=== PATIENT | female | born 1950 | race Caucasian/White ===

== ENCOUNTER → 2023-11-01 09:34 | Outpatient (REF) | payer MEDICARE, OTHER, SELFPAY | LOC: HWRAD 09:34 | PROVIDERS: ATTENDING PHYSICIAN Internal Medicine Rheumatology; FAMILY PHYSICIAN Family Medicine | DX: M81.0 Age-related osteoporosis without current pathological fracture (principal) | CPT/HCPCS: 77080 ==

== ENCOUNTER → 2024-03-04 14:41 | Outpatient (REF) | payer MEDICARE, OTHER, SELFPAY | LOC: WDC 14:41 | PROVIDERS: ATTENDING PHYSICIAN Family Medicine | DX: Z12.31 Encounter for screening mammogram for malignant neoplasm of breast (principal) | CPT/HCPCS: 77063; 77067 ==

== ENCOUNTER → 2025-03-26 17:24 | Outpatient (REF) | payer MEDICARE, OTHER, SELFPAY | LOC: WDC 17:24 | PROVIDERS: ATTENDING PHYSICIAN Family Medicine | DX: Z12.31 Encounter for screening mammogram for malignant neoplasm of breast (principal) | CPT/HCPCS: 77063; 77067 ==

== ENCOUNTER 2025-07-14 15:25 | Emergency (ER) | payer MEDICARE, OTHER, SELFPAY ==
[2025-07-14 15:33] VITALS: BP 144/78
[2025-07-14 15:58] LABS: Hematocrit 40.9 % (37.0-47.0); Hemoglobin 13.2 g/dL (12.0-16.0); Mean Corp Hgb Conc. 32.3 g/dL (33.0-37.0); Mean Corpuscular Volume 84.2 fL (81.0-99.0); Nucleated Red Blood Cells % 0 %; Platelet Count 318 10^3/uL (130-400); Red Cell Dist. Width 14.3 % (11.5-14.5)
[2025-07-14 16:15] LABS: ALT (SGPT) 18 U/L (0-35); AST (SGOT) 24 U/L (14-36); Albumin 4.3 g/dl (3.5-5.0); Alkaline Phosphatase 99 U/L (38-126); Blood Urea Nitrogen 10 mg/dl (7-17); Calcium 9.9 mg/dl (8.4-10.2); Carbon Dioxide 28 mmol/L (22-30); Chloride 106 mmol/L (98-107); Glucose 101 mg/dl (70-99); Lipase 116 U/L (23-300); Potassium 3.6 mmol/L (3.5-5.1); Sodium 140 mmol/L (135-145); Total Protein 7.1 g/dl (6.3-8.2); eGFR > 60.00
--- NOTE | 2025-07-14 18:28 | ED.GENMED ---
History of Present Illness
<Slava Gomez PA-C - Last Filed: 07/14/25 19:16>
General
Chief Complaint: Flank Pain
Time Seen by Provider: 07/14/25 18:16
History of Present Illness
History of Present Illness:
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
that began yesterday. Pain is fairly constant and is equal on both sides. No recent falls or injuries. She also reports over the past 3 weeks she has been having intermittent gross hematuria. She followed with her doctor and there was thought
for a possible urinary tract infection but the patient was not started on antibiotics. She had no back or flank pain at that time. No other acute symptoms noted.
Past History
<Slava Gomez PA-C - Last Filed: 07/14/25 19:16>
Past History
ED Past Medical History: Asthma, CVA, HTN, Hypercholesterolemia and Other (Crohn's disease)
ED Past Surgical History: , Orthopedic (R hip replaced) and Other (Hernia repair)
Social History
Tobacco: Non-smoker
Personal:
Living: with family
Employment: Retired
Review of Systems
<Slava Gomez PA-C - Last Filed: 07/14/25 19:16>
Review of Systems
All Other Systems: ROS reviewed and negative except as documented in HPI and ROS
Phy Exam
<ELZBIETA Ortiz Last Filed: 07/14/25 19:16>
Physical Exam
Physical Exam:
GENERAL: Alert , in no apparent distress
NECK: Supple
ENT: o/p clr, mmm.
CARDIAC: Regular rate and rhythm .
LUNGS: Clear breath sounds bilaterally, no acute respiratory distress, no wheezes/rales/rhonchi
ABDOMEN: Soft, without focal tenderness, no r/g, no cvat
NEUROLOGICAL: Alert and oriented, no focal neuro deficits
SKIN: Warm and dry, skin intact.
MUSCULOSKELETAL: No edema, well perfused. No tenderness. No rashes. No deformities.
PSYCH: Normal and appropriate interaction.
Course
<Slava Gomez PA-C - Last Filed: 07/14/25 19:16>
Orders/Labs/Results
Orders:
Orders
07/14/25 15:42
Complete Blood Count/With Diff Urgent
Comprehensive Metabolic Panel Urgent
Lipase Urgent
07/14/25 18:27
CT Abd/pel Without Iv Or Oral Urgent
Comment:
Reason For Exam: back pain, hematuria
07/14/25 18:36
Urinalysis Reflex To Culture Urgent
Date Specimen was Collected: 07/14/25
Time Specimen was Collected: 15:38
Urine Microscopic Reflex Cult Urgent
Urine Culture Urgent
RILEY Source: U
Specimen Description:
Date Specimen was Collected: 07/14/25
Time Specimen was Collected: 15:38
Abnormal Lab Results
07/14/25 07/14/25
15:42 18:36
WBC 11.3 H 10^3/uL
(4.8-10.8)
MCHC 32.3 L g/dL
(33.0-37.0)
MPV 10.6 H fL
(7.4-10.4)
Abs Immat Gran (auto) 0.1 H 10^3/uL
(0-0.05)
Absolute Neuts (auto) 8.1 H 10^3/uL
(1.4-6.5)
Absolute Monos (auto) 0.7 H 10^3/uL
(0.1-0.6)
Lymphocytes % 19.3 L %
(20.5-51.1)
Glucose 101 H mg/dl
(70-99)
Ur Occult Blood Reflex 1+ A
(Negative)
Leukocyte Esterase Rfl 1+ A
(Negative)
Urine RBC 3-6 A /HPF
(0-2)
Urine Bacteria (Reflex) Many A
(Negative)
Urine Albumin (Reflex) 2+ A
(Neg - Trace)
07/14/25 15:42
07/14/25 15:42
Vital Signs
Initial and Last Documented VS:
Initial Vital Signs
Temp Pulse Resp BP Pulse Ox
97.9 F 98 20 144/78 96
07/14/25 15:33 07/14/25 15:33 07/14/25 15:33 07/14/25 15:33 07/14/25 15:33
Last Documented Vital Signs
Temp Pulse Resp BP Pulse Ox
97.9 F 98 20 144/78 96
07/14/25 15:33 07/14/25 15:33 07/14/25 15:33 07/14/25 15:33 07/14/25 18:30
Nanylt;Dexter Kelsey PA-C - Last Filed: 07/14/25 20:36>
Orders/Labs/Results
Orders:
Orders
07/14/25 15:42
Complete Blood Count/With Diff Urgent
Comprehensive Metabolic Panel Urgent
Lipase Urgent
07/14/25 18:27
CT Abd/pel Without Iv Or Oral Urgent
Comment:
Reason For Exam: back pain, hematuria
07/14/25 18:36
Urinalysis Reflex To Culture Urgent
Date Specimen was Collected: 07/14/25
Time Specimen was Collected: 15:38
Urine Microscopic Reflex Cult Urgent
Urine Culture Urgent
RILEY Source: U
Specimen Description:
Date Specimen was Collected: 07/14/25
Time Specimen was Collected: 15:38
Abnormal Lab Results
07/14/25 07/14/25
15:42 18:36
WBC 11.3 H 10^3/uL
(4.8-10.8)
MCHC 32.3 L g/dL
(33.0-37.0)
MPV 10.6 H fL
(7.4-10.4)
Abs Immat Gran (auto) 0.1 H 10^3/uL
(0-0.05)
Absolute Neuts (auto) 8.1 H 10^3/uL
(1.4-6.5)
Absolute Monos (auto) 0.7 H 10^3/uL
(0.1-0.6)
Lymphocytes % 19.3 L %
(20.5-51.1)
Glucose 101 H mg/dl
(70-99)
Ur Occult Blood Reflex 1+ A
(Negative)
Leukocyte Esterase Rfl 1+ A
(Negative)
Urine RBC 3-6 A /HPF
(0-2)
Urine Bacteria (Reflex) Many A
(Negative)
Urine Albumin (Reflex) 2+ A
(Neg - Trace)
07/14/25 15:42
07/14/25 15:42
Vital Signs
Initial and Last Documented VS:
Initial Vital Signs
Temp Pulse Resp BP Pulse Ox
97.9 F 98 20 144/78 96
07/14/25 15:33 07/14/25 15:33 07/14/25 15:33 07/14/25 15:33 07/14/25 15:33
Last Documented Vital Signs
Temp Pulse Resp BP Pulse Ox
97.9 F 98 20 144/78 96
07/14/25 15:33 07/14/25 15:33 07/14/25 15:33 07/14/25 15:33 07/14/25 18:30
<Slava Gomez PA-C - Last Filed: 07/14/25 19:16>
MDM/Problems Addressed
Differential Diagnosis Includes:
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
that began yesterday. Overall, patient appears well. Workup initiated in triage reveals a leukocytosis to 11.3. Urinalysis pending. Back examination is normal. Abdomen soft and nontender. Will obtain a CT abdomen and pelvis without contrast to
assess for a ureteral stone however my suspicion is that the pain is likely unrelated to the urinary tract and most likely related to acute on chronic back pain. Will monitor.
<Slava Gomez PA-C - Last Filed: 07/14/25 19:16>
*Pulse Oximetry
SaO2: 96
Oxygen Mode of Delivery: Room air
<Dexter Kelsey PA-C - Last Filed: 07/14/25 20:36>
*Pulse Oximetry
Patient hypoxic: no
*Critical Care Note
Total Time (30-74mins, 75-104mins- exclusive of procedures): Not Applicable
<Dexter Kelsey PA-C - Last Filed: 07/14/25 20:36>
Update Note
Update Note:
Assumed care of patient pending CT of the abdomen and pelvis. This was performed and is finished and is negative for acute finding.
There is a low-attenuation solid renal lesion on the right kidney but malignancy could not be excluded. This was relayed to the patient. She will follow-up with her family doctor. Prednisone was prescribed for her pain
ED Attending Note
<Slava Gomez PA-C - Last Filed: 07/14/25 19:16>
-
Portions of this chart may have been created with voice recognition software.� Occasional wrong word or��sound alike� substitutions may have occurred due to the inherent limitations of voice recognition software.
Discharge Plan
Departure
Patient Disposition: Home (Routine Discharge)
Date of Disposition: 07/14/25
Time of Disposition: 20:33
Patient with high blood pressure during this ER visit?: No
Discharge Problem:
Back pain
Instructions: Flank Pain (DC)
Prescriptions:
New
prednisone 10 mg Tablet
See Rx Instructions .ROUTE .COMPLEX Qty: 30 0RF
Rx Instructions:
Take By Mouth:
40 mg daily x3 days, 30 mg daily x3 days,
20 mg daily x3 days, 10 mg daily x3 days.
No Action
prednisone 20 mg tablet
40 mg PO DAILY Qty: 10 0RF
ibuprofen 600 mg tablet
600 mg PO TID PRN (Reason: pain) Qty: 30 0RF
cyclobenzaprine 10 mg tablet
10 mg PO Q12H PRN (Reason: muscle spasm) Qty: 10 0RF
Referrals:
Ramos Castro, [Family Provider, Family Practice]
Activity Restrictions/Additional Instructions:
Use prednisone as directed. Please follow-up with your doctor for further evaluation. As discussed, there is a lesion on your right kidney that may need further follow-up.
Interventions
Interventions:
*Risk Screen - Suicide Last Done: 07/14/25 15:33
*General Assessment Last Done: 07/14/25 15:33
*Neglect/Abuse Screening Last Done: 07/14/25 15:33
*ED COVID-19 Vaccine History Last Done: 07/14/25 18:50
*ED Influenza Vaccine History Last Done: 07/14/25 18:50
[facility] Fall Risk Assessment Tool Last Done: 07/14/25 18:50
TK-Jpyzyj-Upfiegxdrx Assessment Last Done: 07/14/25 18:50
ED-Female Genitourinary Assessment Last Done: 07/14/25 18:50
Discharge Date and Time
Print Language: CITIZEN [place]
[2025-07-14 18:50] VITALS: BMI 41.2
[2025-07-14 18:51] LABS: Urine Character Clear (Clear)
[2025-07-14 19:04] LABS: Urine Squamous Cell >30 /LPF (Few)
[2025-07-14 20:51] VITALS: BP 158/81
== END 2025-07-14 20:52 | disposition home or self-care (01) ==
LOC: EMR 15:25
PROVIDERS: EMERGENCY PHYSICIAN Emergency Medicine; FAMILY PHYSICIAN Family Medicine
DX: M54.50 Low back pain, unspecified (principal); I10 Essential (primary) hypertension; J45.909 Unspecified asthma, uncomplicated; E78.00 Pure hypercholesterolemia, unspecified; R31.0 Gross hematuria; Z86.73 Personal history of transient ischemic attack (TIA), and cerebral infarction without residual deficits; Z96.641 Presence of right artificial hip joint
CPT/HCPCS: 99284; 74176; 80053; 81003; 81015; 83690; 85025; 87077; 87086